=== PATIENT | male | born 2005 | race Two or more races ===

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

== ENCOUNTER 2024-09-28 20:22 | Emergency (ER) | payer OTHER ==
[~2024-09-28] VITALS: Ht 172.7 cm; Wt 81.8 kg
--- NOTE | 2024-09-28 23:05 | ED.PDOC ---
HPI (NEURO) HPI Comments Pt BIBA from home with C/O headache x 6 days. Pt reports falling while snow boarding 6 days ago, -LOC, - N/V, and has had intermitten headache since, improves with Tylenol but pt reports comes backwhen Tylenol wears off. Pt A/O x 4, Last dose of Tylenol 1.5 hr [employer]IC[employer]. Chief Complaint: Headache Time Seen by MD: 21:58 Primary Care Provider: JUDD Reviewed Notes: Nurses Notes, Medications, Allergies Information Source: Patient Mode of Arrival: EMS Past Medical History PAST MEDICAL HISTORY: Denies Surgical History: Denies all surgeries Family History Family History: Reviewed,noncontributory to illness Social History Smoker: Non-Smoker Lives In: Home Constitutional: denies: chills, diaphoresis, fatigue, fever, malaise, sweats, weakness, others EENTM: denies: blurred vision, double vision, ear bleeding, ear discharge, ear drainage, ear pain, ear ringing, eye pain, eye redness, hearing loss, mouth lavonne n, mouth swelling, nasal discharge, nose bleeding, nose congestion, nose pain, photophobia, tearing, throat pain, throat swelling, voice changes, others Respiratory: denies: cough, hemoptysis, orthopnea, SOB at rest, shortness of breath, SOB with excertion, stridor, wheezing, others Cardiovascular: denies: chest pain, dizzy spells, diaphoresis, Dyspnea on exertion, edema, irregular heart beat, left arm pain, lightheadedness, palpitations, PND, syncope, others Gastrointestinal: denies: abdomen distended, abdominal pain, blood streaked bowels, constipated, diarrhea, dysphagia, difficulty swallowing, hematemesis, melena, nausea, poor appetite, poor fluid intake, rectal bleeding, rectal pain, vomiting, others Genitourinary: denies: burning, dysuria, flank pain, frequency, hematuria, incontinence, penile discharge, penile sore, pain, testicle pain, testicle swelling, urgency, others Neurological: reports: dizziness, headache; denies: fainting, left sided numbness, left sided weakness, numbness, paresthesia, pre-existing deficit, right sided numbness, right sided weakness, seizure, speech problems, tingling, tremors, weakness, others Musculoskeletal: denies: back pain, gout, joint pain, joint swelling, muscle pain, muscle stiffness, neck pain, others Integumetry: denies: bruises, change in color, change in hair/nails, dryness, laceration, lesions, lumps, rash, wounds, others Allergic/Immunocompromised: denies: Difficulty Healing, Frequent Infections, Hives, Itching, others Hematologic/Lymphatic: denies: anemia, blood clots, easy bleeding, easy bruising, swollen glands, others Endocrine: denies: excessive hunger, excessive sweating, excessive thirst, excessive urination, flushing, intolerance to cold, intolerance to heat, unexplained weight gain, unexplained weight loss, others Psychiatric: denies: anxiety, bipolar disorder, depression, hopeless, panic disorder, schizophrenia, sleepless, suicidal, others Physical Exam General Appearance: No Apparent Distress, Normal HEENT: Normal ENT Inspection, Pharynx Normal, TMs Normal Neck: Full Range of Motion, Non-Tender Respiratory: Chest Non-Tender, Lungs Clear, No Respiratory Distress, Normal Breath Sounds Cardiovascular: No Edema, No JVD, No Murmur, No Gallop, Normal Peripheral Pulses, Regular Rate/Rhythm Breast Exam: Deferred Gastrointestinal: No Organomegaly, Non Tender, No Pulsatile Mass, Normal Bowel Sounds, Soft Genitalia: Deferred Pelvic: Deferred Rectal: Deferred Extremities: Normal capillary refill, Normal inspection, Normal range of motion, Non-tender, No pedal edema Musculoskeletal : Apperance: Normal Neurologic: Alert, manager logistic II-XII nml as Tested, No Motor Deficits, Normal Affect, Normal Mood, No Sensory Deficits Cerebellar Function: Normal Reflexes: Normal Skin: Dry, Normal Color, Warm Lymphatic: No Adenopathy Was a procedure done? Was a procedure done?: No Differential Diagnosis (SZ) Headache: Migraine, Subarachnoid Hemorrhage, Post-Traumatic X-Ray, Labs, Meds, VS Vital Signs Date Time Temp Pulse Resp B/P (MAP) Pulse Ox O2 Delivery O2 Flow Rate FiO2 09/28/24 23:34 79 12 97 Room Air 09/28/24 23:20 98.2 79 12 134/86 (102) 94 98.2 09/28/24 20:26 98.6 99 18 148/99 (115) 97 Current Medications Medications (Trade) Dose Ordered Sig/Mathieu Route Start Time Stop Time Status Last Admin Ketorolac Tromethamine (Toradol Injection) 60 mg ONCE ONCE IM 09/28/24 23:45 09/28/24 23:46 DC 09/28/24 23:53 X-Ray, Labs, Meds, VS Comment Head CT negative for acute findings. Concussion secondary to head trauma. Toradol 60 mg IM reports improvement pain requesting discharge at this time. Advised on light diet increase p.o. fluids with electrolytes return to the ER for uncontrolled headache, vomiting, numbness, weakness, lethargy, slurred spe ech, or any focal neuro deficits. Advised to rest take it easy for the next 3-5 days no active sports no snowboarding while with concussion. Patient indicated understanding and agrees with discharge plan of care. Time of 1ST Reevaluation: 23:38 Reevaluation 1ST: Improved Patient Education/Counseling: Diagnosis, Treatment, Prognosis, Need For Follow Up Family Education/Counseling: No Family Present Departure 1 Departure Time of Disposition: 23:37 Impression: Primary Impression: Acute post-traumatic headache, intractable Additional Impression: Head injury, closed, with concussion Qualified Codes: S06.0X0A - Concussion without loss of consciousness, initial encounter Disposition: HOME / SELF CARE / HOMELESS Condition: Stable Discharged With: Self Critical Care Note Critical Care Time?: No Stability Stability form required: TREVER Alvarez Sep 28, 2024 23:05
[2024-09-28 23:20] VITALS: BP 134/86; TEMP 98.2
--- NOTE | 2024-09-28 23:23 | DVH ---
CT HEAD WITHOUT CONTRAST INDICATION: s/p snowboarding injury COMPARISON: None TECHNIQUE: CT of the head without intravenous contrast. RADIATION DOSE: CTDIvol: 56.61 mGy, DLP: 907.54 mGy*cm FINDINGS: There is no evidence of intracranial hemorrhage, extra-axial collection, mass effect, midline shift, herniation or hydrocephalus. The ventricles, sulci and cisterns are normal. The maravilla-white differenti ation is normal. Considerable fluid/mucosal thickening in left maxillary, ethmoid and frontal sinuses, mild mucosal th ickening in right maxillary and ethmoid sinuses. Mastoid air cells and middle ear cavities are clear. Soft tissues and osseous structures are unremarkable. IMPRESSION: No hemorrhage or other intracranial abnormality.
[2024-09-28 23:34] VITALS: PULSE 79; RESP 12; O2SAT 97
[2024-09-28] MEDS: KETOROLAC TROMETH 60MG/2ML VIAL IM ONE (23:53)
== END 2024-09-29 00:24 | disposition home or self-care (01) ==
LOC: EDBD 20:22 → ER 20:22 → EDUNIT# 20:22 → ER 09-29 00:07
DX: S06.0X0A Concussion without loss of consciousness, initial encounter (principal); G44.311 Acute post-traumatic headache, intractable; V00.311A Fall from snowboard, initial encounter; Y93.23 Activity, snow (alpine) (downhill) skiing, snowboarding, sledding, tobogganing and snow tubing; Y92.89 Other specified places as the place of occurrence of the external cause; Y99.8 Other external cause status
CPT/HCPCS: 70450; 96372; 99285; J1885